=== PATIENT | female | born 1960 | race Caucasian/White ===

== ENCOUNTER → 2016-12-11 | Outpatient (CLI) | payer OTHER | END | disposition home or self-care (01) | LOC: CFH 08:41 | PROVIDERS: ATTEND Obstetrics & Gynecology | DX: Z12.31 Encounter for screening mammogram for malignant neoplasm of breast (principal) | CPT/HCPCS: G0202 ==

== ENCOUNTER 2017-04-02 17:59 | Emergency (ER) | payer OTHER ==
[~2017-04-02] VITALS: Ht 152.4 cm; Wt 64.5 kg
[2017-04-02 18:59] LABS: HEMOGLOBIN 12.8 g/dL (11.7-16.4); WHITE BLOOD COUNT 13.2 x10^3/uL (3.4-10)
[2017-04-02] MEDS ORDERED: SODIUM CHLORIDE 0.9% 1,000ML IVBOLUS ONE (19:00)
[2017-04-02] MEDS ORDERED: ONDANSETRON 2MG/ML, 2ML IVPush ONE ×2 (19:00→23:30)
[2017-04-02] MEDS ORDERED: SODIUM CHLORIDE FLUSH 10ML SYR IVF ONE (19:00)
[2017-04-02 19:04] LABS: ASPARTATE AMINO TRANSFERASE 13 U/L (15-37); BLOOD UREA NITROGEN 9 mg/dL (7-18)
[2017-04-02] MEDS ORDERED: PARO20TA98 PO (20:58)
[2017-04-02] MEDS ORDERED: ESTR1TAB15 PO (20:58)
[2017-04-02] MEDS ORDERED: ONDANSETRON 2MG/ML, 2ML ONE ×2 (21:20→23:05)
[2017-04-02] MEDS ORDERED: POTASSIUM CHLORIDE 20 MEQ TAB.ER.PRT PO ONE (22:00)
[2017-04-02] MEDS ORDERED: POTASSIUM CHLORIDE 20 MEQ TAB.ER.PRT ONE (23:05)
[2017-04-02] MEDS ORDERED: VANCOMYCIN 50 MG/ML ORAL SUSP PO ONE (23:30)
[2017-04-03 01:10] VITALS: BP 136/72
== END 2017-04-03 01:13 | disposition home or self-care (01) ==
LOC: ED 04-03 01:05
DX: R19.7 Diarrhea, unspecified (principal); E87.6 Hypokalemia
CPT/HCPCS: 36415; 80053; 83690; 85025; 87324; 89055; 96361; 96374; 96376; 99284; J2405; J7030; J3370

== ENCOUNTER 2017-04-15 10:43 | Inpatient (IN) | payer OTHER ==
[~2017-04-15] VITALS: Ht 152.4 cm; Wt 63.7 kg
[~2017-04-15 10:43] MED LIST: ESTR1TAB15 PO; PARO20TA98 PO
[2017-04-15 11:42] LABS: BLOOD UREA NITROGEN 3 mg/dL (7-18)
[2017-04-15 11:52] LABS: HEMATOCRIT 38.4 % (34.6-47.8); HEMOGLOBIN 12.5 g/dL (11.7-16.4)
[2017-04-15] MEDS ORDERED: SODIUM CHLORIDE FLUSH 10ML SYR IVF ONE (13:00)
[2017-04-15] MEDS ORDERED: SODIUM CHLORIDE FLUSH 10ML SYR IVF PRN (13:00)
[2017-04-15] MEDS ORDERED: POTASSIUM CHLORIDE 20 MEQ TAB.ER.PRT PO ONE (13:30)
[2017-04-15] MEDS ORDERED: POTASSIUM CHLORIDE 20 MEQ TAB.ER.PRT ONE (13:36)
[2017-04-15] MEDS ORDERED: ZOLPIDEM 5MG TABLET PO PRN (14:00)
[2017-04-15] MEDS ORDERED: ONDANSETRON 2MG/ML, 2ML IVPush PRN (14:00)
[2017-04-15 14:14] VITALS: BP 124/73
[2017-04-15] MEDS: POTASSIUM CHLORIDE 20 MEQ in LACTATED RINGERS 1,000 ML IV SCH (15:30)
[2017-04-15] MEDS ORDERED: GOLYTELY 4,000ML ORAL.SOL PO ONE (18:00)
[2017-04-15 19:39] VITALS: BP 150/85
[2017-04-15] MEDS: MOVIPREP POWDER 1 PREP KIT PO SCH (20:16)
[2017-04-16] MEDS: POTASSIUM CHLORIDE 20 MEQ in LACTATED RINGERS 1,000 ML IV SCH (01:21)
[2017-04-16 03:15] VITALS: BP 142/77
[2017-04-16] MEDS: MOVIPREP POWDER 1 PREP KIT PO SCH (04:49)
[2017-04-16 08:00] VITALS: BP 156/82
[2017-04-16] MEDS ORDERED: MIDAZOLAM 1 MG/ML, 5ML ONE (12:28)
[2017-04-16] MEDS ORDERED: FENTANYL PF 100 MCG/2ML ONE (12:28)
[2017-04-16] MEDS ORDERED: VANCOMYCIN 50 MG/ML ORAL SUSP PO SCH ×2 (14:30→15:00)
[2017-04-16 14:39] VITALS: BP 145/84
== END 2017-04-16 18:07 | disposition home or self-care (01) | DRG 373 ==
LOC: ED 11:57 → EDIP 12:36 → 3NE 14:00 → UNDODISIN 04-16 16:33
PROVIDERS: ADMIT Emergency Medicine; ATTEND Hospitalist
PROC: 0DBN8ZX Excision of Sigmoid Colon, Via Natural or Artificial Opening Endoscopic, Diagnostic (ICD-10-PCS; 2017-04-16)
PROC: 0DBP8ZX Excision of Rectum, Via Natural or Artificial Opening Endoscopic, Diagnostic (ICD-10-PCS; principal; 2017-04-16 12:00)
DX: A04.7 Enterocolitis due to Clostridium difficile (principal); E86.9 Volume depletion, unspecified; E87.6 Hypokalemia
CPT/HCPCS: 36415; 80048; 82040; 82378; 85025; 85610; 85730; 87324; 88305; 99152; 99153; 99285; J2250; J3010; J3480; J7120

== ENCOUNTER 2020-11-16 15:24 | Emergency (ER) | payer OTHER ==
[~2020-11-16] VITALS: Ht 152.4 cm; Wt 66.7 kg
[2020-11-16 15:27] VITALS: BP 152/69
[2020-11-16] MEDS ORDERED: ASPIRIN 81 MG TABLET CHEW ONE (15:33)
--- NOTE | 2020-11-16 15:43 | NUR ---
PT CHANGED INTO GOWN, MONITORS IN PLACE. CALL LIGHT WITHIN REACH. NO NEEDS AT THIS TIME
--- NOTE | 2020-11-16 15:44 | NUR ---
XRAY AT BS
[2020-11-16] MEDS ORDERED: LOSA25TA25 PO (15:55)
[2020-11-16] MEDS ORDERED: PARO10TA56 PO (15:55)
[2020-11-16 15:57] LABS: BASOPHILS % (AUTO) 1 % (0-1); EOSINOPHILS % (AUTO) 1 % (1-7); LYMPHOCYTES % (AUTO) 27 % (22-44); MEAN CORPUSCULAR HEMOGLOBIN 32.8 pg (27.0-34.8); MEAN CORPUSCULAR HGB CONC 33.7 g/dL (32.4-35.8); MONOCYTES % (AUTO) 9 % (2-9); NEUTROPHILS % (AUTO) 62 % (42-75); PLATELET COUNT 297 x10^3/uL (130-400); RED BLOOD COUNT 4.01 x10^6/uL (3.82-5.3); RED CELL DISTRIBUTION WIDTH 14.1 % (9.6-15.2)
[2020-11-16 15:59] LABS: MD NO
[2020-11-16] MEDS ORDERED: ASPIRIN 81 MG TABLET CHEW PO ONE (16:00)
[2020-11-16 16:01] LABS: ALBUMIN 4.1 g/dL (3.4-5.0); ANION GAP 5 mmol/L (5-15); CALCIUM 9.3 mg/dL (8.5-10.1); CHLORIDE 111 mmol/L (98-107); CREATININE 0.75 mg/dL (0.55-1.02)
[2020-11-16 16:06] LABS: TROPONIN I < 0.015 ng/mL (0.000-0.045)
--- NOTE | 2020-11-16 16:23 | NUR ---
PA AT BS
--- NOTE | 2020-11-16 16:40 | NUR ---
Patient given discharge instructions and they have confirmed that they understand the instructions. Patient ambulatory with steady gait.
== END 2020-11-16 16:43 | disposition home or self-care (01) ==
LOC: ED 16:35
DX: S29.011A Strain of muscle and tendon of front wall of thorax, initial encounter (principal); M54.6 Pain in thoracic spine; R07.89 Other chest pain; X58.XXXA Exposure to other specified factors, initial encounter; Y93.89 Activity, other specified; Y92.89 Other specified places as the place of occurrence of the external cause; Y99.8 Other external cause status
CPT/HCPCS: 36415; 71045; 80048; 82040; 84484; 85025; 93005; 99285